=== PATIENT | male | born 1950 ===

== ENCOUNTER → 2017-09-05 | Outpatient (CLI) | payer OTHER | LOC: COL.RAD 07:20 | DX: M23.221 Derangement of posterior horn of medial meniscus due to old tear or injury, right knee (principal); M76.51 Patellar tendinitis, right knee; M17.11 Unilateral primary osteoarthritis, right knee; Z98.890 Other specified postprocedural states ==

== ENCOUNTER → 2022-07-03 | Outpatient (CLI) | payer OTHER ==
[~2022-07-03] MED LIST: CEFTIN500 MG PO
== END ==
LOC: COL.RAD 13:17
DX: N32.81 Overactive bladder (principal); R30.0 Dysuria